=== PATIENT | female | born 1975 | race Caucasian/White ===

== ENCOUNTER → 2017-05-12 06:55 | Outpatient (CLI) | payer BC | LOC: D.RAD 06:55 | DX: R05 Cough (principal) ==

== ENCOUNTER → 2019-03-23 09:26 | Outpatient (CLI) | payer BC ==
[2019-03-23 09:53] LABS: BASOPHILS 0.3 % (0-2); EOSINOPHILS 1.3 % (0-7); HEMATOCRIT 40.4 % (36.0-48.0); IMMATURE GRANULOCYTES 0.2 % (0-5); LYMPHOCYTES 31.4 % (15-50); MCH 31.9 pg (26.0-34.0); MCHC 34.7 g/dL (31.0-37.0); MEAN PLATELET VOLUME 9.7 fL (7.4-10.4); MONOCYTES 9.2 % (2-11); NEUTROPHILS 57.6 % (40-80); PLATELET COUNT 200 10x3/uL (130-400); RBC 4.39 10x6/uL (4.00-5.40); RDW 12.2 % (11.5-14.5)
[2019-03-23 10:13] LABS: ALBUMIN 4.1 g/dL (3.4-5.0); ALKALINE PHOSPHATASE 48 U/L (46-116); ALT (SGPT) 16 U/L (10-68); BILIRUBIN - TOTAL 0.22 mg/dL (0.2-1.3); CALC OSMOLALITY 280 mosm/kg (275-300); CALCIUM 8.5 mg/dL (8.5-10.1); CARBON DIOXIDE 26.8 mmol/L (21.0-32.0); CHLORIDE - SERUM 104 mmol/L (98-107); CHOL - HDL RATIO 3.5 ratio (2.3-4.1); CHOLESTEROL, TOTAL 160 mg/dL (0-200); CREATININE - SERUM 0.7 mg/dL (0.6-1.3); GLUCOSE 92 mg/dL (74-106); HDL CHOLESTEROL 46 mg/dL (32-96); LDL CHOLESTEROL 96 mg/dL (0-100); LDL-HDL RATIO 2.1 ratio (1.5-3.5); PROTEIN - SERUM 7.4 g/dL (6.4-8.2); SODIUM 138 mmol/L (136-145); THYROID STIMULATING HORMONE 1.32 uIU/mL (0.36-3.74); TRIGLYCERIDE 90 mg/dL (30-200); UREA NITROGEN 26 mg/dL (7-18); eGFR NON AFRICAN AMERICAN > 90 mL/min (90-120)
[2019-03-23 11:10] LABS: ERYTHROCYTE SEDIMENTATION RATE 1 mm/hr (0-20)
== END | disposition home or self-care (01) ==
LOC: D.LAB 09:26
PROVIDERS: ATTEND Family Medicine
DX: K58.9 Irritable bowel syndrome, unspecified (principal); M54.5 Low back pain; F32.9 Major depressive disorder, single episode, unspecified; Z00.00 Encounter for general adult medical examination without abnormal findings

== ENCOUNTER → 2020-01-24 13:56 | Outpatient (CLI) | payer BC | END | disposition home or self-care (01) | LOC: D.HCCARDIO 13:56 | PROVIDERS: ATTEND Internal Medicine Cardiovascular Disease | DX: I20.9 Angina pectoris, unspecified (principal) ==